=== PATIENT | male | born 1995 | race Caucasian/White ===

== ENCOUNTER 2022-12-23 18:16 | Emergency (ER) | payer SELFPAY | END 2022-12-23 18:20 | disposition left against medical advice (07) | LOC: M ED 18:16 → EDBD 18:16 → M ED 18:20 | DX: Z53.21 Procedure and treatment not carried out due to patient leaving prior to being seen by health care provider (principal) ==

== ENCOUNTER 2022-12-23 22:43 | Inpatient (IN) | payer MEDICAID, SELFPAY ==
[~2022-12-23] VITALS: Ht 185.4 cm; Wt 72.3 kg
[2022-12-23 23:55] LABS: HEMATOCRIT 39.7 % (42.0-52.0); HEMOGLOBIN 13.2 g/dl (13.5-17.5); MEAN CORPUSCULAR HEMOGLOBIN 30.9 pg (27.0-33.0); MEAN CORPUSCULAR HGB CONC 33.2 g/dl (32.0-36.5); PLATELET COUNT, AUTOMATED 234 10^3/uL (150-450); RED BLOOD COUNT 4.27 10^6/uL (4.30-6.10)
[2022-12-24 00:12] LABS: BARBITURATES URINE NEGATIVE (NEGATIVE); METHADONE URINE NEGATIVE (NEGATIVE); OPIATES URINE NEGATIVE (NEGATIVE); PHENCYCLIDINE URINE NEGATIVE (NEGATIVE)
[2022-12-24 00:14] LABS: ETHYL ALCOHOL (ETHANOL) 0.004 % (0.000-0.010)
[2022-12-24 00:15] LABS: ACETAMINOPHEN LEVEL < 2.0 UG/ML (10.0-20.0)
[2022-12-24 00:15] LABS: AMPHETAMINES LEVEL URINE POSITIVE (NEGATIVE); BENZODIAZEPINES URINE POSITIVE (NEGATIVE); CANNABINOIDS URINE POSITIVE (NEGATIVE); COCAINE METABOLITE URINE POSITIVE (NEGATIVE)
[2022-12-24 00:16] LABS: ALBUMIN 4.1 G/DL (3.2-5.2); ALKALINE PHOSPHATASE 65 U/L (46-116); ALT/SGPT 17 U/L (7.0-40); AST/SGOT 15 U/L (<34); BILIRUBIN,DIRECT 0.4 MG/DL (<0.4); BILIRUBIN,TOTAL 0.7 MG/DL (0.3-1.2); BLOOD UREA NITROGEN 7 MG/DL (9-23); CALCIUM LEVEL 9.2 MG/DL (8.5-10.1); CARBON DIOXIDE LEVEL 29 MMOL/L (20-31); CHLORIDE LEVEL 105 MMOL/L (98-107); CREATININE FOR GFR 1.04 MG/DL (0.70-1.30); GLOMERULAR FILTRATION RATE > 60.0 (>60); GLUCOSE, FASTING 105 MG/DL (60-100); POTASSIUM SERUM 4.2 MMOL/L (3.5-5.1); SALICYLATE LEVEL < 3.0 MG/DL (<30); SODIUM LEVEL 139 MMOL/L (136-145); TOTAL PROTEIN 7.1 G/DL (5.7-8.2)
[2022-12-24 00:18] LABS: THYROID STIMULATING HORMONE 0.308 uIU/ML (0.55-4.78)
[2022-12-24] MEDS: NICOTINE 21MG/24HR 1 EA TRANSDERMAL TD SCH (09:00)
[2022-12-24] MEDS ORDERED: HOME MED LIST COMPLETE! XX SCH (09:40)
[2022-12-24] MEDS ORDERED: IBUPROFEN 400MG TAB PO PRN (11:05)
[2022-12-24] MEDS ORDERED: MAALOX 30 ML SUSP *UDC PO PRN (11:05)
[2022-12-24] MEDS ORDERED: MOM 30ML SUSPENSION UDC PO PRN (11:05)
[2022-12-24] MEDS ORDERED: OLANZapine ORAL DISINTEGRATING TAB 5MG PO PRN (11:05)
[2022-12-24] MEDS ORDERED: ACETAMINOPHEN TAB 650MG DOSE (2X325MG) PO PRN (11:05)
[2022-12-24] MEDS ORDERED: diphenhydrAMINE 25MG CAP PO PRN (11:05)
[2022-12-24] MEDS ORDERED: METAL LOCK LOOP XX ONE (11:38)
[2022-12-24 13:24] VITALS: BP 125/85
[2022-12-25 06:18] VITALS: BP 135/81
[2022-12-25] MEDS ORDERED: LOPERAMIDE 2 MG CAPLET PO PRN (09:05)
[2022-12-25] MEDS ORDERED: ACETAMINOPHEN 325 MG TAB PO PRN (09:05)
[2022-12-25] MEDS ORDERED: IBUPROFEN 400MG TAB PO PRN ×2 (09:05→09:15)
[2022-12-25] MEDS ORDERED: ERYTHROMYCIN OPHTH OINT OD PRN (09:10)
[2022-12-25] MEDS ORDERED: ONDANSETRON 4MG TAB PO PRN (09:10)
[2022-12-25] MEDS ORDERED: IBUPROFEN 800 MG TAB PO PRN (09:15)
[2022-12-25] MEDS: NICOTINE 21MG/24HR 1 EA TRANSDERMAL TD SCH ×2 (09:49→14:30)
[2022-12-25] MEDS: cloNIDine 0.1MG TABLET PO PRN (14:29)
[2022-12-25 15:54] VITALS: BP 128/97
[2022-12-26 06:23] VITALS: BP 124/81
[2022-12-26] MEDS: NICOTINE 21MG/24HR 1 EA TRANSDERMAL TD SCH (09:13)
[2022-12-26] MEDS: cloNIDine 0.1MG TABLET PO PRN (12:40)
[2022-12-26 18:55] VITALS: BP 142/90
[2022-12-26] MEDS: traZODone 50 MG TAB PO PRN (22:46)
[2022-12-27 06:14] VITALS: BP 124/80
[2022-12-27] MEDS: NICOTINE 21MG/24HR 1 EA TRANSDERMAL TD SCH (09:38)
[2022-12-27 11:07] VITALS: BP 119/88
[2022-12-27] MEDS: cloNIDine 0.1MG TABLET PO PRN (11:07)
[2022-12-27 17:18] VITALS: BP 117/73
[2022-12-27] MEDS: traZODone 50 MG TAB PO PRN (20:30)
[2022-12-28 06:00] VITALS: BP 115/60
[2022-12-28] MEDS: NICOTINE 21MG/24HR 1 EA TRANSDERMAL TD SCH (08:13)
== END 2022-12-28 12:16 | disposition home or self-care (01) | DRG 754 ==
LOC: EDBD 22:43 → M ED 22:43 → M ED INP 12-24 11:05 → M PSY 12-24 13:43
PROVIDERS: ADMIT Psychiatry & Neurology Psychiatry; ATTEND Psychiatry & Neurology Psychiatry
DX: F32.A Depression, unspecified (principal); F14.10 Cocaine abuse, uncomplicated; F43.20 Adjustment disorder, unspecified; F15.10 Other stimulant abuse, uncomplicated; F12.10 Cannabis abuse, uncomplicated; Z76.5 Malingerer [conscious simulation]; Z59.02 Unsheltered homelessness; Z63.0 Problems in relationship with spouse or partner

== ENCOUNTER 2023-01-13 18:10 | Inpatient (IN) | payer MEDICAID ==
[~2023-01-13] VITALS: Ht 188 cm; Wt 86.4 kg
[2023-01-13 19:10] LABS: HEMATOCRIT 40.4 % (42.0-52.0); MEAN CORPUSCULAR HEMOGLOBIN 31.3 pg (27.0-33.0); MEAN CORPUSCULAR HGB CONC 32.2 g/dl (32.0-36.5); MEAN CORPUSCULAR VOLUME 97.3 fl (80.0-96.0); PLATELET COUNT, AUTOMATED 214 10^3/uL (150-450); RED BLOOD COUNT 4.15 10^6/uL (4.30-6.10)
[2023-01-13 19:31] LABS: AMPHETAMINES LEVEL URINE NEGATIVE (NEGATIVE); BARBITURATES URINE NEGATIVE (NEGATIVE); BENZODIAZEPINES URINE NEGATIVE (NEGATIVE)
[2023-01-13 19:32] LABS: CANNABINOIDS URINE POSITIVE (NEGATIVE); COCAINE METABOLITE URINE NEGATIVE (NEGATIVE); METHADONE URINE NEGATIVE (NEGATIVE); OPIATES URINE NEGATIVE (NEGATIVE); PHENCYCLIDINE URINE NEGATIVE (NEGATIVE)
[2023-01-13 19:34] LABS: ETHYL ALCOHOL (ETHANOL) < 0.003 % (0.000-0.010)
[2023-01-13 19:35] LABS: ACETAMINOPHEN LEVEL < 2.0 UG/ML (10.0-20.0); ALBUMIN 4.1 G/DL (3.2-5.2); ALKALINE PHOSPHATASE 78 U/L (46-116); ALT/SGPT 31 U/L (7.0-40); AST/SGOT 20 U/L (<34); BILIRUBIN,DIRECT 0.2 MG/DL (<0.4); BILIRUBIN,TOTAL 0.6 MG/DL (0.3-1.2); BLOOD UREA NITROGEN 13 MG/DL (9-23); CALCIUM LEVEL 9.3 MG/DL (8.5-10.1); CARBON DIOXIDE LEVEL 29 MMOL/L (20-31); CHLORIDE LEVEL 105 MMOL/L (98-107); CREATININE FOR GFR 0.97 MG/DL (0.70-1.30); GLOMERULAR FILTRATION RATE > 60.0 (>60); GLUCOSE, FASTING 100 MG/DL (60-100); POTASSIUM SERUM 4.5 MMOL/L (3.5-5.1); SODIUM LEVEL 141 MMOL/L (136-145)
[2023-01-13 19:36] LABS: SALICYLATE LEVEL < 3.0 MG/DL (<30); THYROID STIMULATING HORMONE 0.846 uIU/ML (0.55-4.78)
[2023-01-13] MEDS ORDERED: HOME MED LIST COMPLETE! XX SCH ×2 (20:00→22:20)
[2023-01-13] MEDS ORDERED: diphenhydrAMINE 25MG CAP PO PRN (22:55)
[2023-01-13] MEDS ORDERED: MAALOX 30 ML SUSP *UDC PO PRN (22:55)
[2023-01-13] MEDS ORDERED: MOM 30ML SUSPENSION UDC PO PRN (22:55)
[2023-01-14 00:12] VITALS: BP 129/78
[2023-01-14 06:27] VITALS: BP 116/68
[2023-01-14 18:00] VITALS: BP 144/75
[2023-01-15 06:12] VITALS: BP 106/80
[2023-01-15 14:58] LABS: BASO % 0.3 % (0.0-1.0); EOS % 0.4 % (0.0-3.0); HEMATOCRIT 39.3 % (42.0-52.0); LYMPH # 1.3 10^3/uL (1.5-5.0); MEAN CORPUSCULAR HEMOGLOBIN 31.1 pg (27.0-33.0); MEAN CORPUSCULAR HGB CONC 33.1 g/dl (32.0-36.5); MONO # 0.3 10^3/uL (0.0-0.8); MONO % 4.4 % (2.0-8.0); NEUTROPHILS # 6.1 10^3/uL (1.5-8.5); NEUTROPHILS % 77.6 % (36.0-66.0); PLATELET COUNT, AUTOMATED 241 10^3/uL (150-450); RED BLOOD COUNT 4.18 10^6/uL (4.30-6.10); WHITE BLOOD COUNT 7.8 10^3/uL (4.0-10.0)
[2023-01-15 17:55] VITALS: BP 137/89
[2023-01-15] MEDS: traZODone 50 MG TAB PO PRN (21:03)
[2023-01-15] MEDS: IBUPROFEN 400MG TAB PO PRN (21:04)
[2023-01-16] MEDS ORDERED: LevoFLOXacin 750 MG TABLET PO SCH (06:00)
[2023-01-16 07:07] VITALS: BP 117/56
[2023-01-16] MEDS: IBUPROFEN 400MG TAB PO PRN ×2 (12:53→19:08)
[2023-01-16] MEDS: NICOTINE 14 MG/24 HR TRANSDERMAL TD SCH (13:52)
[2023-01-16 16:27] VITALS: BP 130/70
[2023-01-16] MEDS: ACETAMINOPHEN TAB 650MG DOSE (2X325MG) PO PRN ×2 (17:10→23:54)
[2023-01-16] MEDS ORDERED: LIDOCAINE 1% SDV 30ML VIAL As Ordered ONE (21:10)
[2023-01-16] MEDS ORDERED: LIDOCAINE W/EPINEPHRINE 1% 20ML VIAL As Ordered ONE (21:55)
[2023-01-16] MEDS ORDERED: BACITRACIN OINTMENT 30GM TUBE As Ordered ONE (21:59)
[2023-01-16] MEDS: traZODone 50 MG TAB PO PRN (22:55)
[2023-01-17] MEDS: AUGMENTIN 875 MG TAB PO SCH ×3 (00:16→21:00)
[2023-01-17] MEDS: CIPROFLOXACIN HC OTIC SUSPENSION AS SCH ×3 (00:16→21:00)
[2023-01-17 07:04] VITALS: BP 127/69
[2023-01-17] MEDS: IBUPROFEN 400MG TAB PO PRN ×2 (08:05→18:42)
[2023-01-17] MEDS: NICOTINE 14 MG/24 HR TRANSDERMAL TD SCH ×2 (08:06→12:58)
[2023-01-17] MEDS: BACITRACIN OINTMENT 30GM TUBE TOP SCH ×3 (09:58→21:00)
[2023-01-17] MEDS: ACETAMINOPHEN TAB 650MG DOSE (2X325MG) PO PRN (12:57)
[2023-01-17 16:44] VITALS: BP 127/78
[2023-01-18 06:25] VITALS: BP 145/75
[2023-01-18] MEDS: NICOTINE 14 MG/24 HR TRANSDERMAL TD SCH (08:30)
[2023-01-18] MEDS: BACITRACIN OINTMENT 30GM TUBE TOP SCH ×3 (08:31→21:00)
[2023-01-18] MEDS: CIPROFLOXACIN HC OTIC SUSPENSION AS SCH ×2 (08:31→21:00)
[2023-01-18] MEDS: AUGMENTIN 875 MG TAB PO SCH ×2 (08:31→21:04)
[2023-01-18] MEDS: ACETAMINOPHEN TAB 650MG DOSE (2X325MG) PO PRN (12:38)
[2023-01-18 16:25] VITALS: BP 127/70
[2023-01-19] MEDS ORDERED: AMOX875T2 PO ×2 (05:34→05:38)
[2023-01-19] MEDS ORDERED: BACI50OI TOP ×2 (05:34→05:40)
[2023-01-19] MEDS ORDERED: CIPRHCOTIC AS ×2 (05:34→05:40)
[2023-01-19 06:46] VITALS: BP 128/90
[2023-01-19] MEDS: AUGMENTIN 875 MG TAB PO SCH (08:15)
[2023-01-19] MEDS: CIPROFLOXACIN HC OTIC SUSPENSION AS SCH (08:15)
[2023-01-19] MEDS: BACITRACIN OINTMENT 30GM TUBE TOP SCH (08:15)
[2023-01-19] MEDS: NICOTINE 14 MG/24 HR TRANSDERMAL TD SCH (08:18)
== END 2023-01-19 08:49 | disposition home or self-care (01) | DRG 754 ==
LOC: M ED 18:10 → M ED INP 22:54 → M PSY 01-14 00:05
PROVIDERS: ADMIT Psychiatry & Neurology Psychiatry; ATTEND Student in an Organized Health Care Education/Training Program
PROC: 09910ZZ Drainage of Left External Ear, Open Approach (ICD-10-PCS; principal; 2023-01-16 20:30)
DX: F32.A Depression, unspecified (principal); F43.23 Adjustment disorder with mixed anxiety and depressed mood; Z63.5 Disruption of family by separation and divorce; Z59.00 Homelessness unspecified; S00.432A Contusion of left ear, initial encounter; Y04.2XXA Assault by strike against or bumped into by another person, initial encounter; Y92.9 Unspecified place or not applicable; Y93.9 Activity, unspecified; Y99.9 Unspecified external cause status